=== PATIENT | male | born 1990 | race Caucasian/White ===

== ENCOUNTER 2020-05-24 22:40 | Emergency (ER) | payer OTHER ==
[~2020-05-24] VITALS: Ht 180.3 cm; Wt 63.5 kg
--- NOTE | 2020-05-24 23:02 | NUR ---
ED Nurse Note: Pt walked in from home, his vitals are stable on RA, he is walking with a severe limp. Per pt he was using alcohol tonight. Per pt he was cutting veggtables and sliced his right 'pinky' finger bleeding is mostly controled. Also per pt a hour later he locked himself out of his house and decided to 'jump a fence' and landed wrong on his right heel and now is co pain. Addendum: 05/24/20 at 2327 by BRANDI Pt is axox4 with very mild slurring of words
[2020-05-24 23:10] VITALS: BP 142/93
[2020-05-24] MEDS ORDERED: Bacitracin Oint UD TOPIC ONE (23:15)
[2020-05-24] MEDS ORDERED: Cephalexin 500mg cap ORAL ONE (23:15)
[2020-05-24] MEDS ORDERED: Lidocaine 1% MPF 10mg/ml 5ml INJ ONE (23:15)
--- NOTE | 2020-05-24 23:25 | NUR ---
ED Nurse Note: Pt refused Motrin. ER aware.
--- NOTE | 2020-05-24 23:26 | NUR ---
ED Nurse Note: ER MD at bedside
--- NOTE | 2020-05-24 23:44 | Emergency Room Report ---
History of Present Illness General Chief Complaint: Laceration Source: Patient Present Illness HPI Patient jumped over fence and landed wrong. His heel hurts. This happened tonight. In addition he was cutting kiwi fruit with his left hand and is little finger got cut. He is unable to bend the little finger at this time. He has some numbness associated with that too. There was no significant bleeding as this was controlled with pressure. Patient is right-handed. The patient rates the pain in his hand is 3/10. It is sharp and nonradiating. It is at the site of the cut. In addition he has 7/10 pain in his heel when he tries to ambulate. This pain does not radiate. He believes he might have fractured his heel. Patient denies exposure to Covid positive contacts. Patient is right-handed. The patient was having argument with his girlfriend when this happened. He jumped over the fence because she left and walked him inside of the gait. 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 Reviewed Nursing Documentation: PMH: Agreed; PSxH: Agreed Nursing Documentation-PMH Past Medical History: No Stated History Review of Systems Constitutional: Denies: fever Musculoskeletal: Reports: see HPI Skin: Reports: see HPI Psychiatric: Reports: see HPI Neurological: Reports: see HPI Hematologic/Lymphatic: Reports: see HPI Physical Exam Vital Signs Date Time Temp Pulse Resp B/P (MAP) Pulse Ox O2 Delivery O2 Flow Rate FiO2 05/24/20 22:51 97.9 109 20 145/94 (111) 96 Room Air Sp02 EP Interpretation: reviewed, normal General Appearance: well appearing, no apparent distress, GCS 15 Head: normocephalic Eyes: bilateral eye PERRL, bilateral eye EOMI, bilateral eye Scleral Injection ENT: other - Wearing mask Neck: normal inspection, full range of motion, supple Respiratory: normal inspection Cardiovascular #1: regular rate, rhythm Cardiovascular #2: 2+ radial (R) - Normal capillary fill Gastrointestinal: normal inspection Musculoskeletal: gait/station normal, other - Unable to flex his little finger of his right hand Neurologic: alert, motor strength/tone normal - But unable to flex his little finger, sensory deficit - Subjective little finger right hand Psychiatric: mood/affect normal - Occasionally tearful Skin: normal color, warm/dry, laceration - 1/2 cm little finger volar surface, 1 cm lateral side of adjacent ring finger Procedures Laceration/Wound Repair Laceration/Wound Repair : Consent: Verbal Wound Location: upper extremity - right little and ring finger Wound's Depth, Shape: linear, other - Tendon involved Wound Length (cm): 2 - 2.5 total Betadine Prep?: Yes Anesthesia: 1% Lidocaine Wound Debrided: None Wound Repaired With: sutures Suture Size/Type: 5:0, nylon Layer Closure?: No Splint Applied?: Yes Type of Splint Applied: Aluminum Patient Tolerated: Well Complications: None Medical Decision Making Diagnostic Impression: Primary Impression: Flexor tendon laceration, finger, open wound Qualified Codes: S56.129A - Laceration of flexor muscle, fascia and tendon of unspecified finger at forearm level, initial encounter; S61.209A - Unspecified open wound of unspecified finger without damage to nail, initial encounter Additional Impression: Contusion of heel Qualified Codes: S90.31XA - Contusion of right foot, initial encounter ER Course Patient presents with 2 problems. One is a finger laceration that is also a tendon laceration and also heel injury. The tendon laceration needs cleaning and antibiotics and primary repair of the skin. The heel injury is possibly a fracture versus a contusion and x-rays are indicated. Motrin is ordered. Patient refused Motrin. See procedure note for repair of laceration. X-rays of foot without fracture. Patient splint and Stephan applied by tech. Both evaluated by me with excellent position. Good distal neurovascular exam both on the foot and also the finger. Patient agreed to take Motrin. Discussed tendon laceration with patient and the importance of follow-up and tendon repair. Further evaluation reveals that the argument with his girlfriend was significant. The laceration to his little finger and ring finger were alleged to be with his left hand however this is unlikely. Discussed with patient need for possible follow-up for issues between his girlfriend and himself. Other X-Ray Diagnostic Results Other X-Ray Diagnostic Results : X-Ray ordered: R foot # of Views/Limited Vs Complete: 3 View Indication: Pain EP Interpretation: Yes Interpretation: no dislocation, no fractures, other - Soft tissue swelling Impression: No acute disease Electronically Signed by: Electronic Last Vital Signs Date Time Temp Pulse Resp B/P (MAP) Pulse Ox O2 Delivery O2 Flow Rate FiO2 05/25/20 01:30 98.7 88 16 140/85 96 Room Air Status: improved Disposition: HOME, SELF-CARE Condition: Improved Scripts Cephalexin* (KEFLEX*) 500 Mg Capsule 500 MG ORAL EVERY 6 HOURS, #28 CAP Prov: Home Brunner MD 05/25/20 Bacitracin (Bacitracin) 28.4 Gm Oint...g. 1 APPLIC TOPIC BID, #20 GM Prov: Home Brunner MD 05/25/20 Ibuprofen* (MOTRIN*) 600 Mg Tablet 600 MG ORAL Q6H PRN for FOR PAIN, #16 TAB 0 Refills Prov: Home Brunner MD 05/25/20 Referrals: Terry SALGADO,REFERRING (PCP) Home Brunner MD May 24, 2020 23:44
--- NOTE | 2020-05-24 23:52 | NUR ---
ED Nurse Note: medical technologist hematology at bedside.
--- NOTE | 2020-05-24 23:57 | NUR ---
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 There are 5 stitches on the 5th finger on the right hand. 1 stitch on the 4th finger of the right hand. Pt states that he has no pain from his fingers at this time.
--- NOTE | 2020-05-25 00:18 | Diagnostic Imaging Report ---
EXAM: XR Right Foot Complete, 3 or More Views CLINICAL HISTORY: TRAUMA TECHNIQUE: Frontal, lateral and oblique views of the right foot. COMPARISON: None. FINDINGS: Bones/joints: No acute fracture. No dislocation. Soft tissues: Soft tissue swelling surrounding the ankle and more significant anteriorly. No radiopaque foreign body. Other findings: Normal alignment. IMPRESSION: Nonspecific soft tissue swelling as described. No acute fracture or subluxation.
[2020-05-25] MEDS ORDERED: BACITRACIN15 GM TOPIC (00:49)
[2020-05-25] MEDS ORDERED: CEPHALEXIN500 MG ORAL (00:49)
[2020-05-25] MEDS ORDERED: IBUPROFEN600 M1 ORAL (00:49)
[2020-05-25 01:30] VITALS: BP 140/85
--- NOTE | 2020-05-25 01:31 | NUR ---
ER DISCHARGE NOTE: Patient is cleared to be discharged per ERMD, pt is aox4, on room air, with stable vital signs. pt was given dc and prescription instructions, pt was able to verbalize understanding, pt id band removed . pt is able to ambulate with crutches. pt took all belongings. Educated on discharge instructions.
== END 2020-05-25 01:30 | disposition home or self-care (01) ==
LOC: EMR 23:06
DX: S56.125A Laceration of flexor muscle, fascia and tendon of right ring finger at forearm level, initial encounter (principal); S90.31XA Contusion of right foot, initial encounter; F17.200 Nicotine dependence, unspecified, uncomplicated; F19.90 Other psychoactive substance use, unspecified, uncomplicated; W26.0XXA Contact with knife, initial encounter; Y93.G9 Activity, other involving cooking and grilling; Y92.9 Unspecified place or not applicable; W17.89XA Other fall from one level to another, initial encounter; Y93.39 Activity, other involving climbing, rappelling and jumping off
CPT/HCPCS: 12001; 73630; Z7502; 99283